=== PATIENT | female | born 1955 | race Caucasian/White ===

== ENCOUNTER → 2019-05-21 15:18 | Outpatient (CLI) | payer OTHER, SELFPAY ==
--- NOTE | ~2019-05-21 | XR_ITS ---
EXAMINATION: XR knee RT min 4V DATE: 05/21/2019 15:35 INDICATION: Right knee pain. TECHNIQUE: 4 views of right knee were obtained. COMPARISON: None. FINDINGS: There is varus angulation at the knee. There is lateral subluxation of patella. No fracture . There is severe osteoarthritis of medial and patellofemoral compartments and moderate osteoarthriti s of lateral compartment. No knee joint effusion. IMPRESSION: 1. Severe right knee osteoarthritis. Reviewed, dictated and finalized at location A. [employer]
== END ==
PROVIDERS: PCP Internal Medicine; Visit Provider Nurse Practitioner Adult Health
DX: M17.11 Unilateral primary osteoarthritis, right knee (principal)
CPT/HCPCS: 73564

== ENCOUNTER 2022-09-05 02:24 | Day surgery (SDC) | payer MEDICARE, SELFPAY ==
[2022-08-20 10:51] VITALS: BMI 46.5
--- NOTE | 2022-09-04 16:01 | PM.HPGS ---
History of Present Illness History of Present Illness Consent: Risks, benefits, and alternatives have been discussed and questions answered. Patient agrees to proceed with procedure. Chief complaint: GERD Narrative: Soledad Morris is a 66 year old female referred for endoscopy because of persistent reflux symptoms despite taking omeprazole 40 mg per day. Review of Systems Review of Systems: All systems reviewed & are unremarkable except as noted in HPI and below PMFSH Social History Social History Smoking status: Never smoker Alcohol intake: current Alcohol use details: socially Substance use: current Substance use type: marijuana Other substance usage details: on occasion Living arrangements: with family Spiritual care concerns: No Meds Home Medications and Allergies Home Medications Medication Instructions Recorded Confirmed Type albuterol sulfate 90 mcg/actuation 2 puff inhalation PRN PRN Wheezing 08/20/22 08/20/22 History aerosol inhaler (ProAir HFA) amlodipine 10 mg tablet 10 mg PO DAILY 08/20/22 08/20/22 History celecoxib 200 mg capsule 200 mg PO DAILY 08/20/22 08/20/22 History fluoxetine 40 mg capsule 40 mg PO DAILY 08/20/22 08/20/22 History hydrochlorothiazide 12.5 mg tablet 12.5 mg PO DAILY 08/20/22 08/20/22 History levothyroxine 88 mcg tablet 88 mcg PO DAILY 08/20/22 08/20/22 History omeprazole 40 mg capsule,delayed 40 mg PO DAILY 08/20/22 08/20/22 History release oxybutynin chloride 10 mg 10 mg PO DAILY 08/20/22 08/20/22 History tablet,extended release 24 hr pravastatin 40 mg tablet 40 mg PO DAILY 08/20/22 08/20/22 History Allergies Allergy/AdvReac Type Severity Reaction Status Date / Time cat dander Allergy Sneezing Verified 09/05/22 08:25 Exam Const: General: alert and obese Orientation/consciousness: patient oriented x3 Resp: Auscultation: clear to auscultation bilaterally Cardio: Rhythm: regular rhythm GI: GI Palp: Yes Soft to palpation and No Tenderness to palpation present (GI) Neuro: General: patient oriented x3 Assessment and Plan Assessment and plan (1) GERD (gastroesophageal reflux disease): Code(s): K21.9 - Gastro-esophageal reflux disease without esophagitis Status: Acute Assessment and Plan: EGD with possible biopsy or dilatation or cautery.
[2022-09-05 08:28] VITALS: BP 132/78; PULSE 88; RESP 20; TEMP 36.4; O2SAT 96
[2022-09-05] MEDS: LACTATED RINGERS 1,000 ML 150 ML IV CONT (08:37)
--- NOTE | 2022-09-05 09:26 | P.PNAN_ITS ---
Anes - Initial Pre Proc Eval Procedure: Operation Date: 09/05/22 10:00 Proposed Procedures p Esophagogastroduodenoscopy - Rosas Alejandre MD Date/Time: 09/05/22 09:26 Surgeon: Rosas Alejandre MD Pre Op Diagnosis: GERD Patient Data Age: 66 Gender: F Height: 1.63 m Weight: 124.2 kg Last Vital Signs Temp 97.6 F 09/05/22 08:28 Pulse 88 09/05/22 08:28 Resp 20 09/05/22 08:28 BP 132/78 09/05/22 08:28 Pulse Ox 96 09/05/22 08:28 O2 Del Method Room Air 09/05/22 08:28 Allergies Allergy/AdvReac Type Severity Reaction Status Date / Time cat dander Allergy Sneezing Verified 09/05/22 08:25 Home Medications Medication Instructions Recorded Confirmed Type albuterol sulfate 90 mcg/actuation 2 puff inhalation PRN PRN Wheezing 08/20/22 08/20/22 History aerosol inhaler (ProAir HFA) amlodipine 10 mg tablet 10 mg PO DAILY 08/20/22 08/20/22 History celecoxib 200 mg capsule 200 mg PO DAILY 08/20/22 08/20/22 History fluoxetine 40 mg capsule 40 mg PO DAILY 08/20/22 08/20/22 History hydrochlorothiazide 12.5 mg tablet 12.5 mg PO DAILY 08/20/22 08/20/22 History levothyroxine 88 mcg tablet 88 mcg PO DAILY 08/20/22 08/20/22 History omeprazole 40 mg capsule,delayed 40 mg PO DAILY 08/20/22 08/20/22 History release oxybutynin chloride 10 mg 10 mg PO DAILY 08/20/22 08/20/22 History tablet,extended release 24 hr pravastatin 40 mg tablet 40 mg PO DAILY 08/20/22 08/20/22 History Patient hx anesthesia problems: none Family hx anesthesia problems: none Results Review: All pre-operative results and documents have been reviewed as part of the pre- operative evaluation. [facility] Social History Social History Smoking status: Never smoker Alcohol intake: current Alcohol use details: socially Substance use: current Substance use type: marijuana Other substance usage details: on occasion Living arrangements: with family Spiritual care concerns: No Anes - Eval Final PreProcedure Day of Procedure 09/05/22 09:26 Patient weight: morbidly obese Heart: regular rate and rhythm Lungs: clear to auscultation Airway: Mallampati scale class III Neurological: alert and oriented Last oral intake: >/= 8 hours ASA classification: IV Emergent: no Anesthetic plan: proceed Anesthesia type and monitoring: general GIVS and standard monitoring Results Review: All pre-operative results and documents have been reviewed as part of the pre- operative evaluation. Informed Consent: The patient's anesthetic plan and its attendant risks and benefits were discussed with the patient/family/POA. Questions were solicited and answers provided to the satisfaction of the patient/family/POA.
[2022-09-05 10:05] VITALS: BP 102/65; PULSE 78; RESP 21; O2SAT 96
[2022-09-05 10:15] VITALS: BP 135/78; PULSE 76; RESP 25; O2SAT 95
[2022-09-05 10:25] VITALS: BP 127/77; PULSE 73; RESP 19; O2SAT 100
== END 2022-09-05 10:33 | disposition home or self-care (01) ==
PROVIDERS: PCP Internal Medicine; Visit Provider Internal Medicine Gastroenterology
PROC: 0DJ08ZZ Inspection of Upper Intestinal Tract, Via Natural or Artificial Opening Endoscopic (ICD-10-PCS; CPT 43235; principal; 2022-09-05 10:00)
DX: K21.9 Gastro-esophageal reflux disease without esophagitis (principal); K44.9 Diaphragmatic hernia without obstruction or gangrene; Z79.51 Long term (current) use of inhaled steroids; F12.90 Cannabis use, unspecified, uncomplicated; E66.01 Morbid (severe) obesity due to excess calories; Z68.42 Body mass index [BMI] 45.0-49.9, adult
CPT/HCPCS: 43235; J2001; J2704; J7120

== ENCOUNTER 2022-09-26 07:47 | Outpatient (CLI) | payer MEDICARE, SELFPAY ==
--- NOTE | ~2022-09-26 | NM_ITS ---
EXAMINATION: NM hepatobiliary wo pharm DATE: 09/26/2022 11:40 INDICATION: Cholelithiasis and epigastric abdominal pain COMPARISON: None. TECHNIQUE: 4.9 mCi Tc-99m mebrofenin (Choletec) was administered intravenously. Scintigraphic images of the abdomen were obtained for one hour. At the 1 hour time point, the patient drank 8 oz Ensure, and imaging was continued for 60 minutes. Gallbladder ejection fraction was calculated by the technol ogist. FINDINGS: There is normal clearance of radiotracer from the blood pool. There is homogeneous tracer u ptake by the liver. Activity progresses to the bowel and gallbladder. The gallbladder ejection fract ion (GBEF) is 68%. Note that with this technique, normal GBEF >= 33%. IMPRESSION: 1. Normal hepatobiliary scan. Reviewed, dictated and finalized at location A.
== END 2022-09-26 07:48 | disposition home or self-care (01) ==
PROVIDERS: PCP Internal Medicine; Visit Provider Surgery
DX: K80.20 Calculus of gallbladder without cholecystitis without obstruction (principal); R10.13 Epigastric pain
CPT/HCPCS: 78226; A9537

== ENCOUNTER 2023-04-03 09:54 | Outpatient (CLI) | payer MEDICARE, SELFPAY ==
--- NOTE | 2023-04-18 11:01 | WPDSLEEPSTUD ---
Sleep Study Date of Study: 04/03/23 Ordering Provider: Emigdio Stacy, Interpreting Physician: Xin Redding MD Sleep Study Type: Split Polysomnogram Height: 1.63 m Weight: 122.47 kg Body Mass Index: 46.3 Neck Circumference (inches): 15 [place]: 12 Reason for Sleep Study Hypersomnolence Sleep History Soledad Morris is a 67-year-old woman with with excessive daytime sleepiness. She frequentlyawakens from sleep short of breath. She frequently wakes at night with heartburn, belching or coughing.??She frequently snores, frequently snores loudly enough that others complain. She occasionally has trouble sleeping when she has a cold. She occasionally wakes up gasping for breath during the night. She frequently has breathing problems at night observed by others. She occasionally sweats excessively at night. She rarely notices her heart pounding or beating irregularly during the night. She occasionally falls asleep during the day. She never falls asleep involuntarily, never falls asleep while driving. She never experiences loss of muscle tone with strong emotion. She never feels paralyzed on waking or falling asleep. She never experiences vivid dreams upon waking or falling asleep. She never feels afraid of going to sleep. She rarely has nightmares. She occasionally recalls her dreams. She never has thoughts racing through her mind. She rarely feels sad or depressed. She rarely feels anxiety. She never notices parts of her body jerk. She rarely kicks during the night. She never feels crawling or aching feelings in her legs. She occasionally feels leg pain at night. She never has morning jaw pain, and occasionally grinds her teeth at night. She occasionally feels bothered by pain during the day, is rarely awakened by pain during the night. She frequently wakes up feeling stiff in the morning, rarely wakes feeling sore or achy in the morning. She rarely awakens with pain in her neck, spine, or joints. Normal bedtime is midnight, falling asleep within 30 minutes or sometimes longer, waking every hour to hour and a half to go to the bathroom or for some other reason. She wakes the morning by 6-7 a.m.. She estimates getting 5-6 hours of sleep at night. She keeps the same schedule on weekends. She takes naps in the afternoon or evening. A short nap lasting 10-15 minutes may be refreshing. She is usually drowsy for 2 hours after waking. She feels better in the evening compared to other times of day. Habits:??Tobacco: Never Caffeine: 3 servings a day between tea or coffee. Alcohol: 2-3 beverages per week Recreational substances: yes, type is not listed [facility] Past Medical History Medical History Asthma Depression GERD (gastroesophageal reflux disease) High cholesterol Hypertension Hypothyroid Surgical History Surgical History H/O gastric sleeve 2014 H/O knee surgery H/O umbilical hernia repair Family History Family History Father Hypertension Mother Diabetes mellitus Social History Social History Smoking status: Never smoker Alcohol intake: current Alcohol use details: socially Substance use: current Substance use type: marijuana Other substance usage details: on occasion Living arrangements: with family Occupation/Education: retired Spiritual care concerns: No Medications Home Medications Medication Instructions Recorded Confirmed Type albuterol sulfate 90 mcg/actuation 2 puff inhalation PRN PRN Wheezing 08/20/22 08/20/22 History aerosol inhaler (ProAir HFA) amlodipine 10 mg tablet 10 mg PO DAILY 08/20/22 08/20/22 History celecoxib 200 mg capsule 200 mg PO DAILY 08/20/22 08/20/22 History fluoxetine 40 mg capsule 40 mg PO DAILY 08/20/22
[2023-04-18 12:34] VITALS: BMI 46.3
== END 2023-04-04 07:40 | disposition home or self-care (01) ==
LOC: ANHCSM 09:57
PROVIDERS: PCP Internal Medicine; Visit Provider Internal Medicine
DX: G47.30 Sleep apnea, unspecified (principal); G47.33 Obstructive sleep apnea (adult) (pediatric); G47.61 Periodic limb movement disorder
CPT/HCPCS: 95811

== ENCOUNTER 2023-11-13 01:20 | Day surgery (SDC) | payer MEDICARE, SELFPAY ==
[2023-10-22 13:51] VITALS: BMI 46.3
[2023-11-13 10:21] VITALS: BP 149/79; PULSE 86; RESP 18; TEMP 35.6; O2SAT 97
[2023-11-13 10:22] VITALS: BMI 45.9
[2023-11-13] MEDS: LACTATED RINGERS 1,000 ML 150 ML IV CONT (10:37)
--- NOTE | 2023-11-13 10:39 | WPDANESEPPF ---
Anes - Initial Pre Proc Eval Procedure: Operation Date: 11/13/23 11:00 Proposed Procedures p Colonoscopy - Scott Lord MD Date/Time: 11/13/23 10:39 Surgeon: Scott Lord MD Pre Op Diagnosis: Other Fecal abnormalities Patient Data Age: 68 Gender: F Height: 1.63 m Weight: 121.4 kg Last Vital Signs Temp 35.6 C L 11/13/23 10:21 Pulse 86 11/13/23 10:21 Resp 18 11/13/23 10:21 BP 149/79 H 11/13/23 10:21 Pulse Ox 97 11/13/23 10:21 O2 Del Method Room Air 11/13/23 10:21 Allergies Allergy/AdvReac Type Severity Reaction Status Date / Time cat dander Allergy Sneezing Verified 11/06/22 10:20 Home Medications Medication Instructions Recorded Confirmed Type albuterol sulfate 90 mcg/actuation 2 puff inhalation PRN PRN Wheezing 08/20/22 10/22/23 History aerosol inhaler (ProAir HFA) amlodipine 10 mg tablet 10 mg PO DAILY 08/20/22 10/22/23 History celecoxib 200 mg capsule 200 mg PO DAILY 08/20/22 10/22/23 History fluoxetine 40 mg capsule 40 mg PO DAILY 08/20/22 10/22/23 History hydrochlorothiazide 12.5 mg tablet 12.5 mg PO DAILY 08/20/22 10/22/23 History levothyroxine 88 mcg tablet 88 mcg PO DAILY 08/20/22 10/22/23 History pravastatin 40 mg tablet 40 mg PO DAILY 08/20/22 10/22/23 History pantoprazole 40 mg tablet,delayed 40 mg PO BID #60 tabs 10/02/22 10/22/23 Rx release (Protonix) Alive Women's Multivitamin 1 tablet PO DAILY 10/22/23 10/22/23 History ascorbic acid (vitamin C) 250 mg 500 mg PO DAILY 10/22/23 10/22/23 History tablet aspirin 81 mg PO DAILY 10/22/23 10/22/23 History budesonide 160 mcg-glycopyr 9 inh inhalation BID 10/22/23 History mcg-formot 4.8 mcg/actuation HFA inhaler (Breztri Aerosphere) cetirizine 10 mg PO DAILY 10/22/23 10/22/23 History ferrous sulfate 325 mg (65 mg 325 mg PO DAILY 10/22/23 10/22/23 History iron) tablet (FeroSul) semaglutide (weight loss) 0.5 mg subcut WEEKLY 10/22/23 History mg/0.5 mL subcutaneous pen injector (Weg[employer]) Patient hx anesthesia problems: none Family hx anesthesia problems: none Results Review: All pre-operative results and documents have been reviewed as part of the pre-operative evaluation. PMF Past Medical History Medical History Asthma Depression GERD (gastroesophageal reflux disease) High cholesterol Hypertension Hypothyroid Surgical History Surgical History H/O gastric sleeve 2014 H/O knee surgery H/O umbilical hernia repair Family History Family History Father Hypertension Mother Diabetes mellitus Social History Social History Smoking status: Never smoker Alcohol intake: current Drinks per week: 3 Alcohol use details: socially Substance use: current Substance use type: marijuana Other substance usage details: socially Living arrangements: with family Occupation/Education: retired Spiritual care concerns: No Anes - Eval Final PreProcedure Day of Procedure 11/13/23 10:39 Patient weight: morbidly obese Heart: regular rate and rhythm Lungs: clear to auscultation Airway: Mallampati scale class 1 Neurological: alert and oriented Last oral intake: >/= 8 hours ASA classification: III Emergent: no Anesthetic plan: proceed Anesthesia type and monitoring: general GIVS and standard monitoring Results Review: All pre-operative results and documents have been reviewed as part of the pre-operative evaluation. Informed Consent: The patient's anesthetic plan and its attendant risks and benefits were discussed with the patient/family/POA. Questions were solicited and answers provided to the satisfaction of the patient/family/POA.
--- NOTE | 2023-11-13 11:28 | PM.HPGS ---
History of Present Illness History of Present Illness Consent: Risks, benefits, and alternatives have been discussed and questions answered. Patient agrees to proceed with procedure. Chief complaint: Other Fecal abnormalities Narrative: Soledad Morris is a 68 year old female here for + cologuard, last colonoscopy 2008 Review of Systems Review of Systems: All systems reviewed & are unremarkable except as noted in HPI and below PMFSH Past Medical History Medical History (Updated 11/13/23 @ 11:30 by Scott Lord MD) Asthma Depression GERD (gastroesophageal reflux disease) High cholesterol Hypertension Hypothyroid Positive colorectal cancer screening using Cologuard test Surgical History Surgical History H/O gastric sleeve 2013 H/O knee surgery H/O umbilical hernia repair Family History Family History Father Hypertension Mother Diabetes mellitus Social History Social History Smoking status: Never smoker Alcohol intake: current Drinks per week: 3 Alcohol use details: socially Substance use: current Substance use type: marijuana Other substance usage details: socially Living arrangements: with family Occupation/Education: retired Spiritual care concerns: No Meds Home Medications and Allergies Home Medications Medication Instructions Recorded Confirmed Type albuterol sulfate 90 mcg/actuation 2 puff inhalation PRN PRN Wheezing 08/20/22 10/22/23 History aerosol inhaler (ProAir HFA) amlodipine 10 mg tablet 10 mg PO DAILY 08/20/22 10/22/23 History celecoxib 200 mg capsule 200 mg PO DAILY 08/20/22 10/22/23 History fluoxetine 40 mg capsule 40 mg PO DAILY 08/20/22 10/22/23 History hydrochlorothiazide 12.5 mg tablet 12.5 mg PO DAILY 08/20/22 10/22/23 History levothyroxine 88 mcg tablet 88 mcg PO DAILY 08/20/22 10/22/23 History pravastatin 40 mg tablet 40 mg PO DAILY 08/20/22 10/22/23 History pantoprazole 40 mg tablet,delayed 40 mg PO BID #60 tabs 10/02/22 10/22/23 Rx release (Protonix) Alive Women's Multivitamin 1 tablet PO DAILY 10/22/23 10/22/23 History ascorbic acid (vitamin C) 250 mg 500 mg PO DAILY 10/22/23 10/22/23 History tablet aspirin 81 mg PO DAILY 10/22/23 10/22/23 History budesonide 160 mcg-glycopyr 9 inh inhalation BID 10/22/23 History mcg-formot 4.8 mcg/actuation HFA inhaler (Breztri Aerosphere) cetirizine 10 mg PO DAILY 10/22/23 10/22/23 History ferrous sulfate 325 mg (65 mg 325 mg PO DAILY 10/22/23 10/22/23 History iron) tablet (FeroSul) semaglutide (weight loss) 0.5 mg subcut WEEKLY 10/22/23 History mg/0.5 mL subcutaneous pen injector ([employer]) Allergies Allergy/AdvReac Type Severity Reaction Status Date / Time cat dander Allergy Sneezing Verified 11/06/22 10:20 Vital Signs Vital Signs - 24 hr 11/13/23 10:21 Temperature 96.1 F L Pulse Rate 86 Respiratory Rate 18 Blood Pressure 149/79 H Pulse Oximetry 97 Oxygen Delivery Room Air Exam Const: General: comfortable and no acute distress HENMT: Face/Nose/Sinus: Normal nares present Eyes: General: appearance normal, both eyes and all related structures Neck: Neck: no JVD Resp: Auscultation: clear to auscultation bilaterally Cardio: Rate: regular rate Rhythm: regular rhythm GI: Inspection: non-distended GI Palp: Yes Soft to palpation Skin: General skin exam: normal color Neuro: General: gait normal Speech: normal speech Extrem: General: normal to inspection Psych: Mental Status: mental status grossly normal Assessment and Plan Assessment and plan (1) Positive colorectal cancer screening using Cologuard test: Code(s): R19.5 - Other fecal abnormalities Status: Acute Assessment and Plan: colonoscopy
[2023-11-13 11:52] VITALS: BP 110/61; PULSE 83; RESP 18; O2SAT 100
[2023-11-13 12:02] VITALS: BP 120/75; PULSE 86; RESP 22; O2SAT 96
[2023-11-13 12:12] VITALS: BP 144/78; PULSE 78; RESP 19; O2SAT 98
== END 2023-11-13 12:25 | disposition home or self-care (01) ==
PROVIDERS: PCP Internal Medicine; Visit Provider Internal Medicine Gastroenterology
PROC: 0DJD8ZZ Inspection of Lower Intestinal Tract, Via Natural or Artificial Opening Endoscopic (ICD-10-PCS; CPT 45378; principal; 2023-11-13 11:00)
DX: K51.40 Inflammatory polyps of colon without complications (principal); D12.0 Benign neoplasm of cecum; K57.30 Diverticulosis of large intestine without perforation or abscess without bleeding; K64.8 Other hemorrhoids; J45.909 Unspecified asthma, uncomplicated; I10 Essential (primary) hypertension; E78.00 Pure hypercholesterolemia, unspecified; E03.9 Hypothyroidism, unspecified; F32.A Depression, unspecified; Z98.84 Bariatric surgery status; F12.90 Cannabis use, unspecified, uncomplicated; E66.01 Morbid (severe) obesity due to excess calories; Z68.42 Body mass index [BMI] 45.0-49.9, adult; Z79.51 Long term (current) use of inhaled steroids; Z79.82 Long term (current) use of aspirin; Z79.85 Long-term (current) use of injectable non-insulin antidiabetic drugs
CPT/HCPCS: 45385; 88305; J2001; J2704; J7120